=== PATIENT | female | born 1965 | race Two or more races ===

== ENCOUNTER 2019-02-24 19:37 | Emergency (ER) | payer OTHER ==
[~2019-02-24] VITALS: Ht 157.5 cm; Wt 69.3 kg
[~2019-02-24 19:37] MED LIST: SERT25TA
[2019-02-24 19:40] VITALS: Ht 157.5 cm; Wt 69.3 kg
[2019-02-24] MEDS ORDERED: SOD CHLORIDE 0.9% 1,000 ML IV STA (19:45)
[2019-02-24] MEDS ORDERED: LORAZEPAM 2 MG INJ IV STA (19:45)
[2019-02-24] MEDS ORDERED: LABETALOL HCL 20MG INJ IV ONE (21:30)
[2019-02-24 22:10] VITALS: BP 154/98; PULSE 98; RESP 16
== END 2019-02-24 22:11 | disposition home or self-care (01) ==
LOC: E/R 19:37
DX: R56.9 Unspecified convulsions (principal); I10 Essential (primary) hypertension; R40.2142 Coma scale, eyes open, spontaneous, at arrival to emergency department; R40.2342 Coma scale, best motor response, flexion withdrawal, at arrival to emergency department; R40.2242 Coma scale, best verbal response, confused conversation, at arrival to emergency department
CPT/HCPCS: 36415; 70450; 73562; 80048; 80164; 80185; 80307; 85025; 93005; 96374; 96375; J2060; J7030; Z7502; Z7610